=== PATIENT | female | born 1980 | race Caucasian/White ===

== ENCOUNTER 2020-08-31 13:12 | Emergency (ER) | payer OTHER, SELFPAY ==
[2020-08-31 13:15] VITALS: BP 134/70; PULSE 84; RESP 16; TEMP 37; O2SAT 96; BMI 21.4
--- NOTE | 2020-08-31 13:32 | PC.NURSE ---
Patient reports woke this morning approximately 0500 feeling feverish. Reports chills on and off along with malaise and nausea. Vomited once prior to arrival to ED. Now reports nausea has resolved. States I'm really just here cause I want to know if this is covid.
--- NOTE | 2020-08-31 13:43 | ED_ITS ---
HPI - Fever <ITZ BarrowP - Last Filed: 08/31/20 14:02> General Chief Complaint: Fever Stated Complaint: Covid Symptoms Time Seen by Provider: 08/31/20 13:24 Source: patient Mode of arrival: Ambulatory Limitations: no limitations History of Present Illness HPI Narrative: This is a 39-year-old female, nonsmoker, who has no contributory medical history presents to ED with chief complain of covid symptoms. Patient reports has been feeling lethargic since yesterday and woke up at 5:00 a.m. this morning with symptoms of alternating sweats and chills and could not get comfortable. Patient also has nausea had 3 episodes of loose emesis of clear liquid. Patient denies abdominal pain, chest pain, or breathing difficulty but reports body aches, headaches and slight sore throat. Patient denies diarrhea, changes in taste or smells.Patient denies known exposure to COVID illness. Patient works at [employer] in [place]. Patient had taken aspirin and sinus cold medication this morning without much improvement. LMP today. Related Data Previous Rx's Medication Instructions Recorded ondansetron 4 mg PO Q8-12H PRN #7 tab 08/31/20 Allergies Allergy/AdvReac Type Severity Reaction Status Date / Time amitriptyline [AMITRIPTYLINE] AdvReac Severe Fainting Verified 08/31/20 13:49 Review of Systems <ITZ BarrowP - Last Filed: 08/31/20 14:02> Review of Systems Narrative: General: Denies fever, chills, (+) fatigue, malaise, sweats. HEENT: Denies sinus pain, ear pain, (+) sore throat, difficulty swallowing, dizziness. Respiratory: Denies dyspnea, cough, wheezing, hemoptysis, sputum. Cardiovascular: Denies chest pain, palpitations, orthopnea, edema. Gastrointestinal: See HPI : Denies dysuria, frequency, incontinence, hematuria, urinary retention. Musculoskeletal: See HPI Skin: Denies rash, skin lesions, or other. Neurologic: Denies weakness, headache, numbness, change in speech, confusion, seizures, incoordination. Psychiatric: No concerning psychosocial issues. 12-point review of systems is negative except for those stated above. Patient History <ITZ BarrowP - Last Filed: 08/31/20 14:02> Social History Smoking Status: Never smoker Smoking Status: Never smoker alcohol intake frequency: 0-2 drinks per day Substance Use Type: does not use Exam <BO Barrow - Last Filed: 08/31/20 14:02> Narrative Exam Narrative: GEN: Alert, oriented x 3, well appearing and nourished, and in no acute distress. Head: Normal cephalic, atraumatic. No scalp or temporal tenderness, palpable mass or rash. EYES: Pupils are equal, round, and reactive to light and accommodation. Extraocular muscles are intact bilaterally. There is no subconjunctival hemorrhage, exudate and sclera non-icteric. ENT: Hearing grossly intact. Nose without bleeding, purulent discharge or deviation. Facial sinuses nontender to palpate. Mucous membrane moist, no mucosal lesion. Throat without erythema, tonsillar hypertrophy or exudate. Uvula in midline, airway patent. Neck: Trachea in midline. No JVD, non-tender without lymphadenopathy. No masses or thyroid megaly. Supple, non-tender and no meningeal signs. CARDIAC: Normal regular rate and rhythm without murmurs, gallops, or rubs. No chest wall tenderness. No peripheral edema, cyanosis or pallor. Capillary refill is less than 2 seconds. RESPIRATORY: Lungs are clear to auscultate bilaterally. No cough, wheezes, rales, or rhonchi. No stridor, respiratory distress, increase work of breathing, or accessary muscle used. ABD: Abdomen soft, nontender and non-distended. No guarding or rebound tenderness to palpate. Bowel sounds are normal in all 4 quadrants. There is no palpable masses or organomegaly. EXT: Full painless ROM of all extremities with no loss of sensation, strength, effusion or edema. SKIN: Warm, dry, normal color for patient. No erythema, lesions or rash over visible areas. BACK: Nontender without deformity or crepitance. No flank tenderness. NEUROLOGICAL: Alert and oriented to place, time and person. Sensation and motor function intact bilaterally. No facial droops, dysphasia. PSYCHIATRIC: Good judgement and reason, without hallucinations, abnormal affect or abnormal behaviors during the examination. Patient is not suicidal. Initial Vital Signs Initial Vital Signs: Vital Signs Temperature 98.6 F 08/31/20 13:15 Pulse Rate 84 08/31/20 13:15 Respiratory Rate 16 08/31/20 13:15 Blood Pressure 134/70 08/31/20 13:15 Pulse Oximetry 96 08/31/20 13:15 <Alexandro Rob DO - Last Filed: 08/31/20 14:32> Initial Vital Signs Initial Vital Signs: Vital Signs Temperature 98.6 F 08/31/20 13:15 Pulse Rate 84 08/31/20 13:15 Respiratory Rate 16 08/31/20 13:15 Blood Pressure 134/70 08/31/20 13:15 Pulse Oximetry 96 08/31/20 13:15 Scores <BO Barrow - Last Filed: 08/31/20 14:02> GCS [place] coma scale eye opening: Spontaneous [place] coma scale verbal response: Orientated [place] coma scale motor response: Obey commands [place] coma scale total score: 15 qSOFA Altered Mental Status (GCS <15): No Respiratory rate greater than/equal to 22: No Systolic blood pressure less than or equal to 100: No qSOFA Total: 0 0-1 Not High Risk 1-3 High risk Course <BO Barrow - Last Filed: 08/31/20 14:02> Orders Ordered: ED Orders 08/31/20 13:22 COVID19 Stat Discontinued Medications Acetaminophen (Acetaminophen 325 Mg Tablet) 650 mg PO NOW ONE Stop: 08/31/20 13:43 Last Admin: 08/31/20 13:45 Dose: 650 mg Documented by: LUIS ANTONIO Ondansetron HCl (Ondansetron 4 Mg Odt) 4 mg SL NOW ONE Stop: 08/31/20 13:43 Last Admin: 08/31/20 13:45 Dose: 4 mg Documented by: LUIS ANTONIO Reevaluation(s) Reevaluation #1: Patient informed on negative COVID test results. Patient declined further evaluation or other testings at this time since her main concern was COVID illness. We discussed patient to monitor for other symptoms such as productive cough, severe headache, nuchal rigidity, unusual rashes, abdominal pain, chest pain, and difficulty, or urinary symptoms then to return to emergency room for further evaluation. Patient states when she is feeling be tter show received flu immunization. Time: 13:55 Vital Signs Vital signs: Vital Signs - 8 hr 08/31/20 13:15 08/31/20 14:10 Temperature 98.6 F Pulse Rate 84 85 Respiratory Rate 16 Blood Pressure 134/70 Pulse Oximetry 96 98 <Alexandro Rob DO - Last Filed: 08/31/20 14:32> Orders Ordered: ED Orders 08/31/20 13:22 COVID19 Stat Discontinued Medications Acetaminophen (Acetaminophen 325 Mg Tablet) 650 mg PO NOW ONE Stop: 08/31/20 13:43 Last Admin: 08/31/20 13:45 Dose: 650 mg Documented by: LUIS ANTONIO Ondansetron HCl (Ondansetron 4 Mg Odt) 4 mg SL NOW ONE Stop: 08/31/20 13:43 Last Admin: 08/31/20 13:45 Dose: 4 mg Documented by: LUIS ANTONIO Vital Signs Vital signs: Vital Signs - 8 hr 08/31/20 13:15 08/31/20 14:10 Temperature 98.6 F Pulse Rate 84 85 Respiratory Rate 16 Blood Pressure 134/70 Pulse Oximetry 96 98 MDM - Fever <BO Barrow - Last Filed: 08/31/20 14:02> Differential Diagnosis Differential diagnosis: Likely gastroenteritis, viral infection and other (Covid, UTI) Medical Records Attestation: I reviewed the patient's medical records. Lab Data Attestation: I reviewed the patient's lab results. Labs: Lab Results 08/31/20 Range/Units 13:22 COVID-19 PCR Negative (Negative) MDM Narrative Medical decision making narrative: This is a 39 year female who presents to ED with significant other with chief complain/concerns for COVID infection. Patient reports alternating fever and chills with feeling fatigue, nausea and vomiting, slight headache, body aches, sore throat. COVID swab was negative. Patient declined further evaluations for UTIs or flu. Patient was medicated with Tylenol and Zofran. Advised to hydrate adequately with clear liquid after the Zofran. Strict return precautions were discussed with patient and she verbalized understanding in agreement with the treatment plan. Advise continue to use social distancing and good hand hygiene. <Alexandro Rob DO - Last Filed: 08/31/20 14:32> Lab Data Labs: Lab Results 08/31/20 Range/Units 13:22 COVID-19 PCR Negative (Negative) Discharge Plan Departure Patient Disposition: Home Clinical Impression: Viral illness Instructions: DI for Viral Gastroenteritis -- Adult Activity Restrictions/Additional Instructions: You have been diagnosed with [viral illness. COVID test was negative.]. What to do: *Take your medications as directed. Please take [id number] Tylenol and or Motrin as needed for discomfort and fever. Use Zofran as needed for nausea and vomiting. Hydrate adequately and rest. *Follow up with your primary care provider in 2-3 days, call for an appointment. Let them know you were seen in the ED and that we asked you to be seen in follow up. *Return to ED if you have any new, worsening, or concerning symptoms, such as [chest pain, breathing difficulty, productive cough, fever, severe headache, unusual rashes, neck tightness, unable to tolerate fluids or any acute concerns]. Prescriptions: New ondansetron 4 mg tablet,disintegrating 4 mg PO Q8-12H PRN (Reason: nausea and vomiting) Qty: 7 RF: 0 <Alexandro Rob, - Last Filed: 08/31/20 14:32> [facility]ign [facility]: Dr Rob Co-Sign Statement: I was available for consultation during this patient's emergency department visit. This chart is signed by myself for administrative purposes only. I did not have direct contact with this patient during this visit. They were seen independently by the APC.
[2020-08-31] MEDS: ONDANSETRON 4 MG ODT SL (13:45)
[2020-08-31] MEDS: ACETAMINOPHEN 325 MG TABLET 650 MG PO (13:45)
[2020-08-31 13:47] LABS: COVID19 -Nasal RAPID Negative (Negative)
[2020-08-31 14:10] VITALS: PULSE 85; O2SAT 98
== END 2020-08-31 14:11 | disposition home or self-care (01) ==
PROVIDERS: Emergency Provider Nurse Practitioner Family
DX: B34.9 Viral infection, unspecified (principal); R50.9 Fever, unspecified; R53.83 Other fatigue; R11.2 Nausea with vomiting, unspecified; R51.9 Headache, unspecified; J02.9 Acute pharyngitis, unspecified
CPT/HCPCS: 87635; 99281; 99282

== ENCOUNTER → 2020-10-10 12:16 | Outpatient (CLI) | payer OTHER, SELFPAY ==
--- NOTE | 2020-10-10 | DI.US.S_ITS ---
PROCEDURE: US PELVIC COMPLETE INDICATIONS: Female infertility associated with anovulation TECHNIQUE: Real-time scanning was performed of the pelvic organs, with image documentation. Additional endovaginal scanning was necessary due to incomplete visualization of the adnexal and endometrial structures by transabdominal scanning. COMPARISON: None. FINDINGS: Uterus: Uterus is prominent in size at 11.9 x 4.6 x 6.7 cm. The endometrium measures 12 mm. Hypoechoic uterine lesions are seen, which are attributed to fibroids. They measure as follows: Mid uterus, subserosal, 3.8 x 3.6 x 4.5 cm Mid posterior uterus, intramural, 2 x 2 x 1.4 cm. Ovaries: The right ovary measures 5.2 x 3.7 x 4.4 cm and demonstrates a complex cyst that measures 4.4 x 3.8 x 4.6 cm and demonstrates no abnormal vascularity. The left ovary measures 3.4 x 2.4 x 3.7 cm and demonstrates a dominant follicle that measures 2.1 cm, which is considered to be within physiologic limits No adnexal masses are seen. Other: No pathologic free abdominal or pelvic fluid. IMPRESSION: There is a likely hemorrhagic cyst seen of the right ovary that measures up to 4.9 cm. At clinical discretion, a followup pelvic ultrasound could be considered in 6 weeks to assure resolution/ improvement. 2 uterine fibroids can be seen. Dictated by: Colt Caceres M.D. on 10/10/2020 at 12:48 Approved by: Colt Caceres M.D. on 10/10/2020 at 12:51
[2020-10-10 14:41] LABS: Add Manual Diff / Slide Review NO; Basophils Absolute Auto 100 /uL (0-100); Basophils Percent Auto 0.6 % (0-2); Eosinophils Absolute Auto 100 /uL (0-450); Eosinophils Percent Auto 1.1 % (2-4); Hematocrit 42.3 % (36-46); Hemoglobin 14.6 g/dL (12.0-16.0); Lymphocytes Absolute Auto 2600 /uL (1100-4500); Lymphocytes Percent Auto 26.4 % (25-40); Mean Corpuscular HGB Conc 34.6 % (30-36); Mean Corpuscular Hemoglobin 31.1 PG (26-34); Mean Corpuscular Volume 89.9 fL (80-100); Monocytes Absolute Auto 700 /uL (0-900); Neutrophils Absolute Auto 6300 /uL (1500-7000); Neutrophils Percent Auto 64.9 % (50-75); Platelet Count 404 X10^3/uL (150-400); Red Cell Distribution Width 12.1 % (11.6-14.8); White Blood Cell Count 9.7 X10^3/uL (4.5-11.0)
[2020-10-10 14:58] LABS: Alanine Aminotransferase 40 IU/L (<35); Albumin 4.5 g/dL (3.5-5.0); Albumin Globulin Ratio 1.3 (1.0-2.8); Alkaline Phosphatase 59 U/L (38-126); Aspartate Aminotransferase 35 IU/L (14-36); Bilirubin Total 0.2 mg/dL (0.2-1.3); Blood Urea Nitrogen 11 mg/dL (7-17); Calcium 9.3 mg/dL (8.4-10.2); Carbon Dioxide 29 mmol/L (22-32); Chloride 102 mmol/L (98-107); Estimated Glomerular Filt Rate > 60.0 mL/min (>60); Globulin 3.4 g/dL (1.7-4.1); Glucose 90 mg/dL (70-100); HEMOLYSIS < 15 (0-50); Potassium 3.7 mmol/L (3.4-5.1); Sodium 137 mmol/L (137-145); Total Protein 7.9 g/dL (6.3-8.2)
[2020-10-10 14:59] LABS: C-Reactive Protein Quant < 0.5 mg/dL (<1.0)
[2020-10-10 15:09] LABS: Free T4, Direct Thyroxine 1.09 ng/dL (0.78-2.19)
[2020-10-10 15:16] LABS: Erythrocyte Sedimentation Rate 4 MM/HR (0-20)
[2020-10-10 15:23] LABS: Thyroid Stimulating Hormone 0.104 uIU/mL (0.47-4.68)
== END ==
PROVIDERS: PCP Physician Assistant Medical; Referring Provider Family Medicine; Visit Provider Family Medicine
DX: N97.0 Female infertility associated with anovulation (principal); S99.922A Unspecified injury of left foot, initial encounter; G62.9 Polyneuropathy, unspecified; D25.1 Intramural leiomyoma of uterus; D25.2 Subserosal leiomyoma of uterus
CPT/HCPCS: 36415; 76856; 80053; 83001; 83002; 84439; 84443; 85025; 85651; 86140

== ENCOUNTER → 2020-11-02 08:09 | Outpatient (CLI) | payer OTHER, SELFPAY ==
--- NOTE | 2020-11-02 08:11 | DI.RAD.S_ITS ---
PROCEDURE: HL HYSTEROSAPINGOGRAPHY INDICATIONS: Infertility COMPARISON: None. FINDINGS: Patient had a documented negative test prior to the study. Following speculum insertion, a balloon-tip catheter was inserted into the cervical canal, and secured by inflating the balloon. Contrast was then injected into the endometrial canal. Uterus: The uterine cavity appears normal in size and morphology, without synechiae or masses. Fallopian tubes: Both fallopian tubes fill with contrast, and appear normal in caliber and morphology. There is ready dispersion of contrast into the peritoneal cavity. IMPRESSION: Both fallopian tubes are patent. Dictated by: Carl Davis M.D. on 11/02/2020 at 9:29 Approved by: Carl Davis M.D. on 11/02/2020 at 9:30
--- NOTE | 2020-11-03 07:35 | PM.PROC.IR.1 ---
Date/Time/Diagnoses Date of procedure: 11/02/20 Time of procedure: 09:00 Pre-procedure diagnosis: Infertility Post-procedure diagnosis: same Procedure Notes Procedure: Hysterosalpingogram Indications: In for 2 Physician: Lissette Davidson Total Fluoroscopy time (seconds): 35 Total sedation minutes: 0 Procedure in detail & Post-procedure care: After informed consent was obtained, the patient was placed on upside down bedpan with her bottom on the wide part of the bedpan. A bivalve speculum was placed into the vagina. The cervix was cleaned x3 with Betadine. A single-tooth tenaculum was placed on the anterior lip of the cervix. The HSG catheter passed easily into the uterine cavity. 3 cc of air was placed into the balloon to keep the catheter in place. The bivalve speculum was removed from the vagina. Approximately 20 cc of Omniview 300 was injected under direct fluoroscopic examination. The contours of the uterus were normal. There was filling and spill from both tubes. The balloon was deflated and the HSG catheter was removed from the uterus. The single-tooth tenaculum was removed from the anterior lip of the cervix. The bedpan was removed from underneath the patient. The patient tolerated the procedure well. She had pretreated with 600 mg of ibuprofen. She is to continue ibuprofen 600 mg every 6 hours for the next 24 hours. She will call with the 1st day of her menstrual cycle.
== END ==
PROVIDERS: PCP Physician Assistant Medical; Referring Provider Physician Assistant Medical; Visit Provider Obstetrics & Gynecology
DX: N97.9 Female infertility, unspecified (principal)
CPT/HCPCS: 58340; 74740

== ENCOUNTER → 2020-12-28 08:25 | Outpatient (CLI) | payer OTHER, SELFPAY ==
[2020-12-28 09:06] LABS: Semen 30 min. Liquification? Yes
[2020-12-28 10:11] LABS: Sperm Count 21 X10^6mL
[2020-12-28 10:12] LABS: Final Volume 0.5 mL
[2020-12-28 10:29] LABS: % Recovery 8 %
== END ==
PROVIDERS: PCP Physician Assistant Medical; Referring Provider Obstetrics & Gynecology; Visit Provider Obstetrics & Gynecology
DX: N97.0 Female infertility associated with anovulation (principal)
CPT/HCPCS: 89261

== ENCOUNTER → 2021-01-03 16:38 | Outpatient (CLI) | payer OTHER, SELFPAY | PROVIDERS: PCP Physician Assistant Medical; Referring Provider Obstetrics & Gynecology; Visit Provider Obstetrics & Gynecology | DX: N97.0 Female infertility associated with anovulation (principal) | CPT/HCPCS: 36415; 84144 ==

== ENCOUNTER → 2021-03-13 10:46 | Outpatient (CLI) | payer OTHER, SELFPAY ==
[2021-03-13 11:13] LABS: COVID19 -Nasal RAPID Negative (Negative)
== END ==
PROVIDERS: PCP Physician Assistant Medical; Visit Provider Obstetrics & Gynecology
DX: Z01.812 Encounter for preprocedural laboratory examination (principal); Z20.822 Contact with and (suspected) exposure to COVID-19
CPT/HCPCS: 87635

== ENCOUNTER 2021-03-14 08:39 | Inpatient (IN) | payer OTHER, SELFPAY ==
[2021-03-12 15:20] VITALS: BMI 23.3
[2021-03-14] VITALS (18 sets, daily range): BP systolic 87–142; BP diastolic 39–108; PULSE 77–106; RESP 9–18; TEMP 35.9–36.6; O2SAT 97–100; BMI 23.3
--- NOTE | 2021-03-14 | PATH_ITS ---
[facility] Accession Number: [id number] . 01 Material submitted: . PART A: uterus - UTERINE FIBROID PART B: body - ENDOMETRIOMA . 02 Diagnosis: A. Uterine Fibroid (Weight 26 grams): Mitotically active leiomyoma (5.0 x 4.0 x 3.5 cm); negative for atypia or malignancy. Please see comment. . B. Endometrioma: Benign endometrioma (5.2 x 4.5 x 3.5 cm). MRV 03/20/2021 1544 Local . 02 Comment: A. There are very focal areas that demonstrate up to 8 mitoses per 10 high-power (40X) field. There is no evidence of significant cytologic atypia or regions of necrosis. . 02 Electronically signed: . Vandana Wu MD, Pathologist NPI- [id number] . 01 Gross description: . A. Received in formalin, labeled uterine fibroid and consists of a 26-gram, 5.0 x 4.0 x 3.5 cm olsen-white whorled leiomyoma with no areas of hemorrhage, necrosis or cystic degeneration. The specimen is inked blue. Silver Solution Mixer sections are submitted in cassettes A1-A5. B. Received in formalin, labeled endometrioma and consists of a fragmented cyst measuring 5.2 x 4.5 x 3.5 cm in aggregate. The external surface is olsen-pink to pink-purple and smooth with focal fibrinous adhesions. Sectioning reveals a olsen-brown smooth inner lining with adherent clotted blood. Silver Solution Mixer sections are submitted in cassettes B1-B3. ([id number]) /MRV 03/15/2021 1403 Local . 02 Pathologist provided ICD-10: N83.209, D25.9 . 02 CPT . 700811, 970470 Performed at: 01 [facility] [address] [id number] MD Wilson Chan MD Phone: [phone] Performed at: 02 [facility] [address] [place], [place] [id number] MD Jodee Pulido MD Phone: [phone]
--- NOTE | 2021-03-14 09:56 | PM.PREOP ---
Pre-operative Note COVID-19 COVID-19 status: Negative Result date/Date tested (Pos, Neg/Pending): 03/13/21 Interval Note History & Physical reviewed/Exam performed by Physician: Yes Changes to H&P: No H&P completed within 30 days and has changed as indicated here:: March 13, 2021
[2021-03-14] MEDS: LACTATED RINGERS 1,000 ML 100 ML IV ×3 (09:59→16:26)
--- NOTE | 2021-03-14 11:21 | SUR.OPER ---
Lithotomy on padded OR bed, head on pillow, arms secured on padded arm boards at <90 degrees abduction. Legs secured in padded yellow fins stirrups.
[2021-03-14] MEDS: BUPIVACAINE 0.5% (PF) VIAL 30 ML INJ (11:47)
[2021-03-14] MEDS: EPINEPHrine 1 MG/ML SUBCUT (11:48)
[2021-03-14] MEDS: SODIUM CHLORIDE 0.9% 30 ML, VASOPRESSIN 20 UNIT INJ (11:49)
[2021-03-14] MEDS: METHYLENE BLUE 50 MG/10 ML VIAL 25 MG INJ (11:52)
--- NOTE | 2021-03-14 12:58 | PM.GYNOP.1 ---
Operative Date/Time/Diagnoses Date of procedure: 03/14/21 Time of procedure: 12:58 Pre-op diagnosis: Suspected endometrioma Post-op diagnosis: same Procedure & Clinicians Procedure: Procedures Operation Date: 03/14/21 09:45 Actual Procedures Side Surgeon p Diagnostic laparoscopy converted to open Laparotomy with fundal myomectomy, and fulgeration of Endometriosis, removal of right ovarian endometrioma Not Applicable Lissette Davidson MD Indications: Suspected right endometrioma Surgeon: Lissette Davidson Anesthesia Type: General and Local Operative Notes Findings: 8 week size anteverted uterus. 5 cm intramural fibroid at the fundus of the uterus Right endometrioma measuring 7 cm x 6 cm stuck to the right ovarian fossa Left ovary with 1.5 cm endometrioma Endometriosis on the surface of both ovaries, in both ovarian fossa, in the posterior cul-de-sac, along the uterosacral ligaments, and along the bladder flap. Normal liver, gallbladder, and appendix Normal tubes bilaterally Closure Type: primary Specimen(s): other (Right endometrioma) Applied: catheter Estimated blood loss (mL): 50 Blood products transfused: none Procedure in detail: The patient was taken to the operating room where she was placed in the dorsal supine position. After adequate general endotracheal anesthesia was achieved, she was placed in the dorsal lithotomy position, and prepped and draped in the usual sterile fashion. A time-out was performed. A bivalve speculum was placed into the vagina and the anterior lip of the cervix was grasped with a single-tooth tenaculum. The cervical os was sequentially dilated until the Zumi uterine manipulator could pass easily into the endometrial cavity. The single-tooth tenaculum was removed from the anterior lip of the cervix. The bivalve speculum was removed from the vagina. Attention was then turned to the abdomen where 6 cc of 0.5% Marcaine with epinephrine were injected in the umbilical fold. A 5 mm incision was made. The Veress needle was placed into the peritoneal cavity, and its placement confirmed by aspiration and drop test. The abdominal cavity was insufflated with 4 L of CO2. The Veress needle was removed, and a 5 mm trocar was placed without difficulty. A second incision was made 4 cm lateral to the midline after 6 cc of 0.5% Marcaine with epinephrine were injected. A 5 mm incision was made. A second 5 mm trocar was placed under direct visualization. Using the probe the left tube and ovary were visualized. There was a small endometrioma on the left ovary and some endometriosis on the surface of the ovary. The right ovary was socked into the ovarian fossa and could not be freed. There was a dense endometriosis involving the right ovary. There was endometriosis of the posterior cul-de-sac and along the uterosacral ligaments. There was endometriosis on the vesicouterine fold. A decision was made to proceed with an open procedure. The instruments were removed from the abdomen. The CO2 was allowed to escape. The incisions were repaired with 4 0 Monocryl in a subcuticular fashion. A Pfannenstiel skin incision was made 2 finger breaths above the pubic symphysis and carried through to the underlying layer of fascia. The fascia was nicked in the midline and the incision extended bilaterally with the Barton scissors. The superior aspect the fascial incision was grasped with the Angela clamps, elevated, and underlying rectus muscles dissected off sharply and bluntly. In a similar fashion the inferior aspect of the fascial incision was grasped with a Angela clamps, elevated, and the underlying rectus muscles were dissected off sharply and bluntly. The rectus muscles were in the midline. The peritoneum was identified and grasped between 2 hemostats. The peritoneum was entered with the Metzenbaum scissors. This incision was extended superiorly and inferiorly with good visualization of the bladder. The O'Eusebio O'Saavedra retractor was placed into the incision, and the bowel packed away with moist lap sponges. A solution of vasopressin 20 units in 30 cc of sterile saline was prepared. 10 cc were injected along the fundus of the uterus over top of the fibroid. An incision was made with the Bovie. The fibroid was grasped with a single-tooth tenaculum. The fibroid was shelled out with the blunt end of knife handle. The endometrial canal was not entered. Fibroid was handed off for specimen. Excess serosa was excised. Two 0 Vicryl was used to close the deeper layer of the myometrium. 3-0 chromic was used with a baseball stitch to close the serosa. Using the Bovie the endometrial implants along the vesicouterine peritoneum were fulgurated. Also on the surface of the left ovary and in the left ovarian fossa. The right ovary was bluntly dissected out of the right ovarian fossa. There was a large endometrioma. The endometrioma was grasped with Allis clamps and dissected out of the ovary. This was handed off for specimen. The ovary was closed with 3-0 Vicryl with a baseball stitch. In the posterior cul-de-sac and right ovarian fossa the Bovie was used to fulgurate endometriosis. There was a large endometrial implant posteriorly and this was resected. The pelvis was copiously irrigated with warm normal saline. No bleeding was noted. Interceed was placed over the right ovary and over top of the fundus of the uterus where the fibroid had been removed. The lap sponges were removed from the abdomen. The O'Eusebio O'Saavedra retractor was removed from the incision. The peritoneum was closed with 2 0 Vicryl in a running fashion. The fascia was closed with 0 Vicryl in a running fashion. The subcutaneous layer was irrigated with warm normal saline. Five simple interrupted sutures with 3-0 Vicryl were placed to reapproximate the subcutaneous layer. The skin was closed with 4 0 Monocryl in a subcuticular fashion. Steri-Strips were placed. An Aquacel dressing was placed. Allevyn dressings were placed over the laparoscopy incisions. The Zumi uterine manipulator was removed from the uterus. Sponge, lap, and instrument counts were correct x2. The patient tolerated the procedure well, and was taken to PACU in stable condition. Complications: none Post-operative Condition: stable Disposition: PACU Plan for aftercare: To acute care after recovery
[2021-03-14] MEDS: HYDROMORPHONE 2 MG INJ IV ×3 (13:16→13:42)
[2021-03-14] MEDS: OXYCODONE/ACETAMINOPHEN 5/325 TABLET 1 TAB PO ×2 (13:20→13:50)
[2021-03-14] MEDS: KETOROLAC 30 MG/ML VIAL IV ×3 (13:20→20:57)
[2021-03-14] MEDS: fentaNYL 100 MCG/2 ML INJ IV ×3 (13:26→13:50)
[2021-03-14] MEDS: OXYCODONE IR 5 MG TABLET PO ×2 (16:26→20:57)
[2021-03-14] MEDS: ACETAMINOPHEN 325 MG TABLET 650 MG PO (20:57)
[2021-03-14] MEDS: DOCUSATE 250 MG CAPSULE PO (20:58)
[2021-03-15 00:05] VITALS: BP 102/58; PULSE 90; RESP 18; TEMP 36.8; O2SAT 95
[2021-03-15] MEDS: ZOLPIDEM 5 MG TABLET PO ×2 (00:20→21:03)
[2021-03-15] MEDS: OXYCODONE IR 5 MG TABLET PO ×2 (00:20→08:34)
[2021-03-15] MEDS: ACETAMINOPHEN 325 MG TABLET 650 MG PO ×4 (00:20→17:59)
[2021-03-15] MEDS: LACTATED RINGERS 1,000 ML 100 ML IV (02:48)
[2021-03-15] MEDS: KETOROLAC 30 MG/ML VIAL IV ×2 (03:22→09:39)
[2021-03-15 04:18] VITALS: BP 97/55; PULSE 82; RESP 18; TEMP 36.6; O2SAT 96
[2021-03-15 05:17] LABS: Add Manual Diff / Slide Review NO; Basophils Absolute Auto 100 /uL (0-100); Basophils Percent Auto 0.3 % (0-2); Eosinophils Absolute Auto 0 /uL (0-450); Hematocrit 35.2 % (36-46); Lymphocytes Absolute Auto 2200 /uL (1100-4500); Lymphocytes Percent Auto 10.5 % (25-40); Mean Corpuscular HGB Conc 34.1 % (30-36); Mean Corpuscular Hemoglobin 30.7 PG (26-34); Monocytes Absolute Auto 1500 /uL (0-900); Neutrophils Absolute Auto 17200 /uL (1500-7000); Neutrophils Percent Auto 82.2 % (50-75); Platelet Count 362 X10^3/uL (150-400); Red Blood Cell Count 3.92 X10^6/uL (4.0-5.2); Red Cell Distribution Width 12.2 % (11.6-14.8); White Blood Cell Count 20.9 X10^3/uL (4.5-11.0)
[2021-03-15 08:28] VITALS: BP 111/67; PULSE 78; RESP 18; TEMP 36.9; O2SAT 98
[2021-03-15] MEDS: DOCUSATE 250 MG CAPSULE PO ×2 (08:30→21:00)
[2021-03-15 12:00] VITALS: BP 103/55; PULSE 85; RESP 18; TEMP 36.8; O2SAT 97
[2021-03-15] MEDS: OXYCODONE IR 10 MG TABLET PO ×3 (12:10→21:00)
--- NOTE | 2021-03-15 13:10 | CM.DANOTE ---
Addendum entered by Charisma Beltre LPN 03/16/21 14:07: Spoke with Dr. Davidson this morning. She reported pt would be going home today. No d/c needs anticipated. Original Note: Discharge Planning/Care Management DCP: assessment: case received, EMR reviewed. Discussed this morning with Dr. Davidson. She confirmed the surgery she anticipated changed to an open laparotomy with fundal myomectomy. Admission status: INPT: confirmed by UR RNs Wilson and Luz Elena Payer: [employer] PCP: Dr. Alma Castro. Pt lives with her in [place]. She admitted yesterday for a scheduled gynecology procedure and with the change as noted above. P: DCP team will be following prn as POC unfolds...at this point anticipate pt will likely d/c to home setting once she is stable for same. CM Discharge Assessment Start: 03/15/21 13:08 Freq: Status: Active Protocol: Document 03/15/21 13:08 ITV (Rec: 03/15/21 13:10 ITV [id number]) Discharge Planning Assessment Advance Directives? No History Provided By Medical Record Household Members spouse Pre-Anesthesia Assessment Start: 03/12/21 15:20 Freq: Status: Complete Protocol: Document 03/12/21 15:20 CAB (Rec: 03/12/21 15:23 CAB [id number]) Pre-Anesthesia Assessment Patient Information Reviewed Via Chart Review Comment COVID screen @ 03/13/21 Primary Care Provider Jennifer Castro Seen Specialist in Last 12 Months Yes Specialist Seen Software Analyst Primary Language Australian Recreational Leader Required No Height 175.26 cm Weight 71.668 kg Body Mass Index (BMI) 23.3 Barriers to Learning None Anesthesia Review Requested No Vehicle Painter No alcohol intake current alcohol intake frequency 0-2 drinks per day Smoking Status Never smoker Substance Use Type does not use History of Falling (Recent or History of No ) Patient is completely paralyzed or No completely immobile Mental Status Oriented to own ability Is patient on oxygen? No Currently Taking a Beta Sayra No Anti-Coagulant Therapy No Has a Circulating Process Inspector No Cardiac Testing No Hx Pacemaker/ICD No Pacemaker Rep Required? No Cardiac Clearance Received Not Applicable Diabetes No Marital Status Lives With spouse Patient Discharge Plan Description Return Home Advance Directives? No
--- NOTE | 2021-03-15 14:23 | PM.PNPO.1 ---
Subjective Subjective Date Patient Seen: 03/15/21 Time Patient Seen: 14:24 Interval history: Patient is a 40-year-old 0 postop day # 1 status post diagnostic laparoscopy converted to laparotomy with myomectomy, excision of right ovarian endometrioma, fulguration of endometriosis Patient has tolerated a diet. She has voided without the Hunt catheter. She has ambulated in the room. No nausea or vomiting. Pain is fairly well controlled. Exam Vital Signs (past 8 hours): - 03/15/21 08:28 Temperature 98.4 F Pulse Rate 78 Respiratory Rate 18 Blood Pressure 111/67 Pulse Oximetry 98 Oxygen Delivery Method Room Air Oxygen Flow Rate 0 Narrative Exam Narrative: Generally: Patient is sitting up in chair, no acute distress Lungs: Clear to auscultation bilaterally Cardiovascular: Regular rate and rhythm Abdomen: Soft and flat. Good bowel sounds in all 4 quadrants Incisions: Clean dry and intact with dressings. There is a small amount of old blood on 1 of the laparoscopy bandages. Extremities: Negative Homans, no edema Objective Labs Result Diagrams: 03/15/21 05:00 Labs: Laboratory Results - last 24 hr 03/15/21 05:00 WBC 20.9 H RBC 3.92 L Hgb 12.0 Hct 35.2 L MCV 90.0 MCH 30.7 MCHC 34.1 RDW 12.2 Plt Count 362 Neut % (Auto) 82.2 H Lymph % (Auto) 10.5 L [place] % (Auto) 7.0 Eos % (Auto) 0.0 L Baso % (Auto) 0.3 Neut # (Auto) 93700 H Lymph # (Auto) 2200 [place] # (Auto) 1500 H Eos # (Auto) 0 Baso # (Auto) 100 PFSH Surgical History (Updated 11/04/20 @ 19:32 by Lissette Davidson MD) H/O breast augmentation Social History household members: spouse Smoking Status: Never smoker alcohol intake: current Assessment & Plan Post-op Postoperative Procedures: Procedures Operation Date: 03/14/21 09:45 Actual Procedures Side Surgeon p Diagnostic laparoscopy converted to open Laparotomy with fundal myomectomy, and fulgeration of Endometriosis, removal of right ovarian endometrioma Not Applicable Lissette Davidson MD Postoperative day: 1 Postoperative status: doing well Postoperative plan: routine post-op care and ambulate Time Spent With Patient Time with patient: less than 15 minutes Quality VTE Deep Vein Thrombosis/Pulmonary Embolism Present on Admission: No
[2021-03-15] MEDS: IBUPROFEN 600 MG TABLET PO ×2 (14:57→21:00)
[2021-03-15 18:25] VITALS: BP 110/66; PULSE 87; RESP 18; TEMP 36.4; O2SAT 96
[2021-03-16] MEDS: ACETAMINOPHEN 325 MG TABLET 650 MG PO ×2 (01:39→05:51)
[2021-03-16 01:41] VITALS: BP 91/54; PULSE 84; RESP 16; TEMP 37.1; O2SAT 93
[2021-03-16] MEDS: OXYCODONE IR 10 MG TABLET PO ×3 (01:41→09:24)
[2021-03-16 05:57] VITALS: BP 92/57; PULSE 95; RESP 16; TEMP 36.2; O2SAT 95
[2021-03-16 07:00] VITALS: BP 114/69; PULSE 87; RESP 16; TEMP 36.6; O2SAT 98
[2021-03-16] MEDS: IBUPROFEN 600 MG TABLET PO (09:24)
[2021-03-16] MEDS: DOCUSATE 250 MG CAPSULE PO (09:24)
--- NOTE | 2021-03-16 11:58 | PC.NURSE ---
pt reports mild to moderate pain to abdomen; castilloell drsg at lower abdomen c/d/i; Allevyn drsgs to lap sites c/d/i; PO pain meds with reassessed improvement; IS [id number]; pt encouraged to deep breath and use IS 5-10/hourly; d/c instructions explained with SO present, including rx meds, s/sx of infection, constipation, drsgs and f/u appt. pt escorted via wheelchair at 1130 to private vehicle with personal belongings in hand
--- NOTE | 2021-03-19 09:46 | P.DS_ITS ---
History of Present Illness History of Present Illness Date Patient Seen: 03/16/21 Time Patient Seen: 10:00 Chief complaint: SDC Narrative: Patient is a 40-year-old 0 postop day # 2 status post diagnostic laparoscopy converted to laparotomy with fundal myomectomy, excision of right ovarian endometrioma, excision of left ovarian endometrioma, and fulguration of endometriosis. She is feeling much better. Pain is well controlled. No nausea or vomiting. S he is tolerating a diet. She has voided without the catheter. Discharge Providers Provider Date of admission: 03/14/21 08:39 Discharge Date: 03/16/21 Primary care physician: Jennifer Castro MD Discharge provider: Lissette Davidson MD Summary Hospital Course Discharge Diagnosis: Right ovarian endometrioma Left ovarian endometrioma Endometriosis of the pelvis Hospital Course: Patient is a 40-year-old 0 who presented on March 14, 2021 for a scheduled diagnostic laparoscopy with excision of an endometrioma of the right ovary. Due to the extensive endometriosis, a decision was made to proceed with a laparotomy with resection of the endometrioma as well as fundal myomectomy and fulguration of endometriosis. She underwent this procedure without complication. Her postoperative course was unremarkable. By postop day # 2 she was tolerating a diet, ambulating, voiding without catheter, pain well controlled, and no nausea or vomiting. She was discharged home on postop day # 2. Status at Discharge Cognitive/behavioral status at discharge: oriented Functional status at discharge: independent ambulation Overall status at discharge: patient is progressing back to baseline Time Spent with Patient Time spent: Less than 30 minutes Exam Vital Signs (past 8 hours): Oxygen Delivery Method Room Air Oxygen Flow Rate 0 Narrative Exam Narrative: Generally: Patient is sitting up in bed, dressed, no acute distress Lungs: Clear to auscultation bilaterally Cardiovascular: Regular rate and rhythm Abdomen: Soft and flat. Incisions: Clean dry and intact with dressings. There is a small amount of old blood on the right side of the Aquacel dressing. Extremities: Negative Homans Objective Labs Result Diagrams: 03/15/21 05:00 [facility] Surgical History (Updated 11/04/20 @ 19:32 by Lissette Davidson MD) H/O breast augmentation Social History household members: spouse Smoking Status: Never smoker alcohol intake: current Discharge Assessment & Plan Assessment and Plan Assessment: Postop day # 2 status post diagnostic laparoscopy converted to laparotomy with fundal myomectomy, excision of right ovarian endometrioma, excision of left ovarian endometrioma, and fulguration of extensive endometriosis in the pelvis. Patient doing very well Plan of Treatment: Discharge to home Follow-up in 5 days for Aquacel dressing removal Discharge Plan Discharge Plan Patient Disposition: Home Provider Discharge Comment: Call with fever, chills, or redness or drainage around the incisions ibuprofen 600 mg every 6 hours as needed for cramping Tylenol 650 mg every 6 hours as needed oxycodone 10 mg every 4 hours as needed Discharge orders & Medications Prescriptions: New oxycodone 10 mg tablet 10 mg PO Q4H PRN (Reason: pain) Qty: 20 RF: 0 Follow up/Referrals: Lissette Davidson MD [Physician] - (03/21/21 for Aquacel removal) Jennifer Castro MD [Primary Care Provider] - Diet/Activity/Treatments Diet: Regular Activity: no heavy lifting, nothing more than a gal of milk Skin/Wound/Dressing Care Report to your healthcare provider any signs of infection, such as:: chills, fever, increased pain, unusual drainage and unusual redness Dressing: Remove outer pink dressings with attached gauze tomorrow morning after a shower Do not remove lower brown dressing Visit Report/Discharge Packet Instructions: DI for Myomectomy, DI for Laparoscopy, DI for Prescription Opioid Use Discharge Data Primary Care Provider: Jennifer Castro Quality VTE Deep Vein Thrombosis/Pulmonary Embolism Present on Admission: No
== END 2021-03-16 11:35 | disposition home or self-care (01) | DRG 743 ==
LOC: AC 11:44
PROVIDERS: Admitting Provider Obstetrics & Gynecology; PCP Family Medicine; Referring Provider Obstetrics & Gynecology; Visit Provider Obstetrics & Gynecology
PROC: 0UB00ZZ Excision of Right Ovary, Open Approach (ICD-10-PCS; principal; 2021-03-14 09:45)
DX: N83.201 Unspecified ovarian cyst, right side (principal); N80.1 Endometriosis of ovary; N80.3 Endometriosis of pelvic peritoneum; N80.8 Other endometriosis; D25.1 Intramural leiomyoma of uterus
CPT/HCPCS: 36415; 81025; 85025; J0171; J0330; J1100; J1170; J1885; J2405; J2704; J3010; Q9968

== ENCOUNTER → 2022-07-05 11:46 | Outpatient (CLI) | payer OTHER, SELFPAY ==
[2021-03-14 16:47] VITALS: BMI 23.3
[2022-07-05 13:54] LABS: Alanine Aminotransferase 23 IU/L (<35); Albumin 4.7 g/dL (3.5-5.0); Albumin Globulin Ratio 1.3 (1.0-2.8); Alkaline Phosphatase 58 U/L (38-126); Aspartate Aminotransferase 24 IU/L (14-36); BUN Creatinine Ratio 15.9 (6-22); Bilirubin Total 0.4 mg/dL (0.2-1.3); Blood Urea Nitrogen 10 mg/dL (7-17); C-Reactive Protein Quant 0.6 mg/dL (<1.0); Calcium 9.6 mg/dL (8.4-10.2); Carbon Dioxide 23 mmol/L (22-32); Chloride 103 mmol/L (98-107); Estimated Glomerular Filt Rate > 60 mL/min (>60); Globulin 3.6 g/dL (1.7-4.1); Glucose 89 mg/dL (70-100); HEMOLYSIS < 15 (0-50); Magnesium 2.2 mg/dL (1.6-2.3); Potassium 4.1 mmol/L (3.4-5.1); Sodium 138 mmol/L (137-145); Total Protein 8.3 g/dL (6.3-8.2)
[2022-07-05 13:57] LABS: Transferrin 243 mg/dL (206-381)
[2022-07-05 14:08] LABS: Free T3, Triiodothyronine Free 3.47 pg/mL (2.77-5.27); Free T4, Direct Thyroxine 1.05 ng/dL (0.78-2.19)
[2022-07-05 14:22] LABS: Thyroid Stimulating Hormone 0.929 uIU/mL (0.47-4.68)
[2022-07-05 14:40] LABS: Vitamin B12 473 pg/mL (239-931)
[2022-07-05 19:00] LABS: Vitamin D 25 Hydroxy (D3) 40.8 ng/mL (30.0-100.0)
[2022-07-05 19:01] LABS: Luteinizing Hormone 3.74 mIU/mL; Progesterone, Total 1.48 ng/mL
[2022-07-05 19:16] LABS: Estradiol, Total 44.7 pg/mL
[2022-07-07 08:58] LABS: Follicle Stimulating Hormone 7.46 mIU/mL
[2022-07-08 07:58] LABS: Dehydroepiandrosterone Sulfate 97.6 ug/dL (57.3-279.2); Insulin Level Total 12.4 uIU/mL (2.6-24.9)
[2022-07-08 20:16] LABS: Anti Thyroglobulin Antibody <1.0 IU/mL (0.0-0.9); Thyroid Peroxidase Antibodies <8 IU/mL (0-34)
[2022-07-10 13:26] LABS: Percent Free Testosterone 2.41 % (0.50-2.80); Testosterone Free 0.24 ng/dL (0.10-0.85); Testosterone Total 9.9 ng/dL (.)
[2022-07-16 02:00] LABS: Vitamin A 36.2 ug/dL (20.1-62.0)
== END ==
PROVIDERS: PCP Family Medicine; Referring Provider Obstetrics & Gynecology; Visit Provider Obstetrics & Gynecology
DX: E28.2 Polycystic ovarian syndrome (principal)
CPT/HCPCS: 36415; 80053; 82306; 82607; 82627; 82670; 83001; 83002; 83525; 83735; 84144; 84146; 84402; 84403; 84439; 84443; 84466; 84481; 84590; 86140; 86376; 86800